=== PATIENT | female | born 2000 | race Caucasian/White ===

== ENCOUNTER 2022-12-22 17:13 | Emergency (ER) | payer OTHER ==
[2022-12-22 17:31] VITALS: TEMP 98; BMI 29.2
[2022-12-22] MEDS ORDERED: SODIUM CHLORIDE 0.9% 500 ML INFUS.BAG IV ONE (18:50)
[2022-12-22 19:21] LABS: HEMATOCRIT 34.2 % (32.4-45.2); HEMOGLOBIN 11.7 GM/dL (10.7-15.3); MCH 32.6 pg (25.7-33.7); MCHC 34.1 g/dl (32.0-36.0); MEAN CELL VOLUME 95.4 fl (80-96); MEAN PLT VOLUME 8.8 fl (7.5-11.1); PLATELET COUNT 263 10^3/uL (134-434); RBC 3.59 M/mm3 (3.60-5.2); RDW 12.8 % (11.6-15.6); WHITE BLOOD COUNT 13.1 K/mm3 (4.0-10.0)
[2022-12-22 19:46] LABS: ALBUMIN 4.2 g/dl (3.4-5.0); BLOOD UREA NITROGEN 10.7 mg/dL (7-18); CALCIUM 9.4 mg/dL (8.5-10.1)
[2022-12-22 19:49] LABS: CREATININE 0.6 mg/dL (0.55-1.3)
[2022-12-22 19:51] LABS: BILIRUBIN,TOTAL 0.3 mg/dL (0.2-1); TOT PROT 8.2 g/dl (6.4-8.2)
[2022-12-22 20:22] LABS: EPI CELLS 15 /uL (0-25.1); HYALINE CASTS 1 /uL (0-3.1); PH,URINE 5.5 (5.0-8.0); URINE APPEARANCE CLEAR; URINE BACTERIA 45 /uL (0-1359); URINE BILIRUBIN NEGATIVE (NEGATIVE); URINE COLOR YELLOW; URINE GLUCOSE (UA) NEGATIVE (NEGATIVE); URINE KETONE 2+ (NEGATIVE); URINE LEUK ESTERASE NEGATIVE (NEGATIVE); URINE NITRITE NEGATIVE (NEGATIVE); URINE PROTEIN NEGATIVE (NEGATIVE); URINE RBC 7 /uL (0-23.9); URINE UROBILINOGEN 0.2 mg/dL (0.2-1.0); URINE WBC 3 /uL (0-25.8)
[2022-12-22] MEDS ORDERED: CEPHALEXIN MONOHYDRATE 500 MG CAPSULE (UD) PO ONE (23:27)
[2022-12-23] MEDS ORDERED: CEPHALEXIN MONOHYDRATE 500 MG CAPSULE (UD) ONE
[2022-12-23 00:07] VITALS: BP 113/75; PULSE 77; RESP 16
== END 2022-12-23 00:26 | disposition home or self-care (01) ==
LOC: JER 17:13
DX: O23.41 Unspecified infection of urinary tract in pregnancy, first trimester (principal); O20.9 Hemorrhage in early pregnancy, unspecified; Z3A.09 9 weeks gestation of pregnancy
CPT/HCPCS: 36415; 76817-TC; 80053; 81003; 84702; 85027; 86850; 86900; 86901; 87086; 99284-25